=== PATIENT | female | born 1955 | race Caucasian/White ===

== ENCOUNTER → 2019-01-13 07:13 | Outpatient (CLI) | payer MEDICARE, OTHER, SELFPAY ==
[2019-01-13 08:15] LABS: Add Manual Diff / Slide Review NO; Basophils Absolute Auto 100 /uL (0-100); Basophils Percent Auto 0.8 % (0-2); Eosinophils Absolute Auto 200 /uL (0-450); Eosinophils Percent Auto 3.2 % (2-4); Hematocrit 45.3 % (36-46); Lymphocytes Absolute Auto 2800 /uL (1100-4500); Lymphocytes Percent Auto 40.8 % (25-40); Mean Corpuscular HGB Conc 33.2 % (30-36); Mean Corpuscular Volume 84.4 fL (80-100); Monocytes Absolute Auto 700 /uL (0-900); Monocytes Percent Auto 10.9 % (3-14); Neutrophils Absolute Auto 3000 /uL (1500-7000); Neutrophils Percent Auto 44.3 % (50-75); Platelet Count 285 X10^3/uL (150-400); Red Blood Cell Count 5.37 X10^6/uL (4.0-5.2); Red Cell Distribution Width 14.3 % (11.6-14.8); White Blood Cell Count 6.8 X10^3/uL (4.5-11.0)
[2019-01-13 08:34] LABS: Alanine Aminotransferase 33 IU/L (9-52); Albumin 4.3 g/dL (3.5-5.0); Albumin Globulin Ratio 1.2 (1.0-2.8); Alkaline Phosphatase 78 U/L (38-126); Aspartate Aminotransferase 29 IU/L (14-36); BUN Creatinine Ratio 17.1 (6-22); Bilirubin Total 0.3 mg/dL (0.2-1.3); Blood Urea Nitrogen 12 mg/dL (7-17); Calcium 9.8 mg/dL (8.4-10.2); Carbon Dioxide 26 mmol/L (22-32); Chloride 105 mmol/L (98-107); Cholesterol 228 mg/dL (140-199); Estimated Glomerular Filt Rate > 60.0 mL/min (>60); Globulin 3.5 g/dL (1.7-4.1); Glucose 96 mg/dL (80-110); HDL Cholesterol 43 mg/dL (40-60); HEMOLYSIS < 15 (0-50); LDL Cholesterol Calculated 163 mg/dL (<100); Potassium 4.2 mmol/L (3.4-5.1); Sodium 140 mmol/L (137-145); Total Protein 7.8 g/dL (6.3-8.2); Triglycerides 109 mg/dL (35-150)
[2019-01-13 09:02] LABS: TSH w/ Reflex to FT4 3.53 uIU/mL (0.47-4.68)
== END ==
PROVIDERS: Visit Provider Internal Medicine
DX: I10 Essential (primary) hypertension (principal); Z00.00 Encounter for general adult medical examination without abnormal findings; Z13.1 Encounter for screening for diabetes mellitus; Z13.6 Encounter for screening for cardiovascular disorders
CPT/HCPCS: 36415; 80053; 80061; 84443; 85025

== ENCOUNTER → 2019-10-04 11:18 | Outpatient (CLI) | payer MEDICARE, OTHER, SELFPAY ==
--- NOTE | 2019-10-04 11:22 | DI.RAD.S_ITS ---
PROCEDURE: XR SHOULDER RT MIN 2V INDICATIONS: shoulder pain TECHNIQUE: 3 views of the shoulder were acquired. COMPARISON: None. FINDINGS: Bones: No fractures or dislocations. No suspicious bony lesions. Droimymm-ei-apvvnz glenohumeral and mild acromioclavicular joint degeneration. Question Hill-Sachs deformity of humeral head. Visualized ribs appear intact. Soft tissues: Calcification over the humeral head suspicious for calcific tendinitis of the rotator cuff tendons. IMPRESSION: 1. Ilzchzpt-uk-rfxihd degenerative joint disease. 2. Possible Hill-Sachs deformity of humeral head. Please correlate with history of shoulder dislocation. 3. Suspect rotator cuff calcific tendinitis. Dictated by: Maximus Santacruz M.D. on 10/04/2019 at 12:37 Approved by: Maximus Santacruz M.D. on 10/04/2019 at 12:40
== END ==
PROVIDERS: PCP Internal Medicine; Visit Provider Internal Medicine
DX: M25.511 Pain in right shoulder (principal); M19.011 Primary osteoarthritis, right shoulder
CPT/HCPCS: 73030

== ENCOUNTER → 2021-01-11 14:42 | Outpatient (CLI) | payer OTHER, SELFPAY ==
--- NOTE | 2021-01-11 14:47 | DI.MG.S_ITS ---
BILATERAL DIGITAL SCREENING MAMMOGRAM 3D/2D WITH CAD: 01/11/2021 CLINICAL: Routine screening. Comparison is made to exams dated: 01/30/2018 mammogram, 09/26/2015 mammogram, and 04/29/2007 mammogram - [facility]. There are scattered fibroglandular elements in both breasts. Current study was also evaluated with a Computer Aided Detection (CAD) system. There is a benign area of fat necrosis in the left breast. There also are benign calcifications in both breasts. Additionally, there are benign post operative findings in both breasts. No significant masses, calcifications, or other findings are seen in either breast. There has been no significant interval change. IMPRESSION: BENIGN There is no mammographic evidence of malignancy. A 1 year screening mammogram is recommended. This exam was interpreted at Station ID: [id number]. NOTE: For mammograms, a report in lay terms will be sent to the patient. Approximately 15% of breast malignancies will not be visualized mammographically. In the management of a palpable breast mass, a negative mammogram must not discourage biopsy of a clinically suspicious lesion. Electronically Signed By: Carlos Alberto ferrari/caden:01/11/2021 15:49:42 letter sent: Normal Exam ACR BI-RADS Category 2: Benign Finding(s) 3342F
--- NOTE | 2021-01-11 14:47 | DI.RAD.S_ITS ---
PROCEDURE: XR DEXA AXIAL SKELETON INDICATIONS: ROUTINE SCREENING MAMMOGRAM,POST MENOPAUSAL COMPARISON: None. FINDINGS: This blank DEXA report has been sent in error by the PACS system. The correct and complete report will be forthcoming in 1-2 days. Thank you for your patience and understanding. Dictated by: Magui Houser MD, PhD on 01/11/2021 at 16:24 Approved by: Magui Houser MD, PhD on 01/11/2021 at 16:24
== END ==
PROVIDERS: PCP Family Medicine; Referring Provider Family Medicine; Visit Provider Family Medicine
DX: Z12.31 Encounter for screening mammogram for malignant neoplasm of breast (principal); M85.851 Other specified disorders of bone density and structure, right thigh; Z78.0 Asymptomatic menopausal state; Z82.62 Family history of osteoporosis; Z87.891 Personal history of nicotine dependence
CPT/HCPCS: 77063; 77067; 77080

== ENCOUNTER → 2023-01-08 09:43 | Outpatient (CLI) | payer OTHER, SELFPAY ==
--- NOTE | 2023-01-08 09:44 | DI.MG.S_ITS ---
BILATERAL DIGITAL SCREENING MAMMOGRAM 3D/2D WITH CAD: 01/08/2023 CLINICAL: Routine screening. Comparison is made to exams dated: 01/11/2021 mammogram, 01/30/2018 mammogram, and 09/26/2015 mammogram - [facility]. There are scattered areas of fibroglandular density in both breasts (category b / 25%-50% glandular tissue). Current study was also evaluated with a Computer Aided Detection (CAD) system. There is a benign area of fat necrosis in the left breast. There also are benign calcifications in both breasts. Additionally, there are benign post operative findings in both breasts. No significant masses, calcifications, or other findings are seen in either breast. There has been no significant interval change. IMPRESSION: BENIGN There is no mammographic evidence of malignancy. A 1 year screening mammogram is recommended. Based on the Tyrer Cuzick model (a risk assessment model) the patient's lifetime risk is 4.0% and her 10 year risk is 2.4%. According to the ACR, ACS, and NCCN guidelines, an annual breast MRI exam along with mammogram is recommended if the patient's lifetime risk is 20% or greater. This exam was interpreted at Station ID: [id number]. NOTE: For mammograms, a report in lay terms will be sent to the patient. Approximately 15% of breast malignancies will not be visualized mammographically. In the management of a palpable breast mass, a negative mammogram must not discourage biopsy of a clinically suspicious lesion. Electronically Signed By: Pratik gomez/caden:01/08/2023 10:17:21 letter sent: Normal Exam ACR BI-RADS Category 2: Benign Finding(s) 3342F
== END ==
PROVIDERS: PCP Family Medicine; Referring Provider Family Medicine; Visit Provider Family Medicine
DX: Z12.31 Encounter for screening mammogram for malignant neoplasm of breast (principal)
CPT/HCPCS: 77063; 77067

== ENCOUNTER → 2023-08-03 15:25 | Outpatient (CLI) | payer OTHER, SELFPAY ==
--- NOTE | 2023-08-03 15:27 | DI.RAD.S_ITS ---
PROCEDURE: XR KNEE RT 4V INDICATIONS: CHRONIC BILATERAL KNEE PAIN TECHNIQUE: 4 views of the knee were acquired. COMPARISON: None. FINDINGS: Bones: No fractures or dislocations. No suspicious bony lesions. Mild tricompartmental periarticular osteophyte formation. Soft tissues: No joint effusion. No suspicious soft tissue calcifications. IMPRESSION: Osteoarthritis. No acute fracture. No osseous lesion. If symptoms and/or clinical suspicion for pathology persist, further assessment with repeat, or advanced imaging (e.g., CT, MRI, or bone scan) may be helpful for further assessment. Dictated by: Karen Mendieta M.D. on 08/03/2023 at 16:35 Approved by: Karen Mendieta M.D. on 08/03/2023 at 16:35
--- NOTE | 2023-08-03 15:27 | DI.RAD.S_ITS ---
PROCEDURE: XR KNEE LT 4V INDICATIONS: CHRONIC BILATERAL KNEE PAIN TECHNIQUE: 4 views of the knee were acquired. COMPARISON: None. FINDINGS: Bones: No fractures or dislocations. No suspicious bony lesions. Mild tricompartmental periarticular osteophyte formation Soft tissues: No joint effusion. No suspicious soft tissue calcifications. IMPRESSION: Osteoarthritis. No acute fracture. No osseous lesion. If symptoms and/or clinical suspicion for pathology persist, further assessment with repeat, or advanced imaging (e.g., CT, MRI, or bone scan) may be helpful for further assessment. Dictated by: Karen Mendieta M.D. on 08/03/2023 at 16:31 Approved by: Karen Mendieta M.D. on 08/03/2023 at 16:35
== END ==
PROVIDERS: PCP Family Medicine; Referring Provider Family Medicine; Visit Provider Family Medicine
DX: M25.561 Pain in right knee (principal); M25.562 Pain in left knee; G89.29 Other chronic pain; M17.0 Bilateral primary osteoarthritis of knee
CPT/HCPCS: 73564

== ENCOUNTER → 2024-02-22 09:34 | Outpatient (CLI) | payer OTHER, SELFPAY ==
--- NOTE | 2024-02-22 09:36 | DI.RAD.S_ITS ---
PROCEDURE: XR SHOULDER LT MIN 2V INDICATIONS: SHOULDER PAIN TECHNIQUE: 3 views of the shoulder were acquired. COMPARISON: [facility], CR, XR SHOULDER RT MIN 2V, 10/04/2019, 11:18. FINDINGS: Bones: No fractures or dislocations. No suspicious bony lesions. Visualized ribs appear intact. Glenohumeral and acromioclavicular joint space narrowing with associated osteophytosis. Soft tissues: No suspicious soft tissue calcifications. IMPRESSION: Moderate shoulder osteoarthritis. Dictated by: Raman Chapman M.D. on 02/22/2024 at 11:51 Approved by: Raman Chapman M.D. on 02/22/2024 at 11:52
== END ==
PROVIDERS: PCP Family Medicine; Referring Provider Family Medicine; Visit Provider Family Medicine
DX: M19.012 Primary osteoarthritis, left shoulder (principal); M25.512 Pain in left shoulder; G89.29 Other chronic pain
CPT/HCPCS: 73030

== ENCOUNTER 2024-03-09 14:13 | Outpatient (RCR) | payer OTHER, SELFPAY ==
--- NOTE | 2024-03-09 18:16 | PT.OIE ---
Current Diagnoses Pain in left shoulder (03/09/24) Past Medical History (Last Reviewed 02/10/19 @ 10:46 by Speedy Barcenas MD) Essential hypertension Past Surgical History (Last Reviewed 02/10/19 @ 10:46 by Speedy Barcenas MD) Status post breast reduction (11/02/01) Visit Care Team Role Provider Type Yury Daugherty MD Attending Provider Physician Family Provider Primary Care Provider Referring Provider Specialty: [facility] Address: [address] [place] [address], [facility] [place], [facility] Email: [email or web address] Initial Evaluation PT-OP-A Visit Information Start: 03/08/24 17:42 Freq: Status: Active Protocol: Document 03/09/24 14:30 [facility] (Rec: 03/09/24 15:21 [facility] [id number]) Out-Patient Physical Therapy Visit Information Visit Information Visit Type Initial Evaluation Visit Note 10/28 Student PT Shayan Alejo participated in treatment session w/PT direct supervision and direction Visit Start Time 14:31 Visit Number 1 Number of PHYSICAL EDUCATION AIDE Visits 0 PT-OP-B Current Condition Start: 03/08/24 17:42 Freq: Status: Active Protocol: Document 03/09/24 14:30 [facility] (Rec: 03/09/24 15:21 [facility] [id number]) Current Condition History of Current Condition Onset Date 10 years w/recent worsening in last Current Complaints L shoulder pain History of Current Condition Pt has had shoulder pain for 10 years and it has gotten worse. She was told it was frozen shoulder. R shoulder pain w/arthritis and had good success w/cortizone shots. She still does work around the house, but doing yard work like raking, hoeing etc, she can't do it. She couldn't get up off a stool as she feels like she doesn't have any strength in arms. Getting in truck is hard d/t feeling weak in arms. Pt side and back sleeper and does have pain. She takes meloxicam daily and takes arthritis meds at night. She can have pain at night but those help. denies doing PT for shoulders in past. Pt reports neck and jaw pain. Pain is more on L side of shoulder and neck. R handed Prior Treatments and Tests xray IMPRESSION: Moderate shoulder osteoarthritis. Treatment Goals Patient/Caregiver Goals more motion to be able reach up and back, improve strength, be able to do yardwork PT-OP-C Subjective Start: 03/08/24 17:42 Freq: Status: Active Protocol: Document 03/09/24 14:30 [facility] (Rec: 03/09/24 15:21 [facility] [id number]) OP-PT Pain Assessment Location L shoulder Pain Location Details lat shoulder/brachium Description Aching,With Movement Description- Other catches Frequency Intermittent Other Pain Aggravating Factors lay on it, yardwork, doing hair,driving lawnmower/truck Pain Alleviating Factors Medication Other Pain Alleviating Factors CBD cream, PT-OP-F Manual Assessment Start: 03/08/24 17:42 Freq: Status: Active Protocol: Document 03/09/24 14:30 [facility] (Rec: 03/09/24 15:21 [facility] [id number]) Manual Assessments Joint Mobility Assessment Joint Mobility Assessment hard end feel range of motion, pops noted w/use of UEs PT-OP-J Posture/Palpation/Skin Start: 03/08/24 17:42 Freq: Status: Active Protocol: Document 03/09/24 14:30 [facility] (Rec: 03/09/24 15:21 [facility] [id number]) Posture Evaluation Renée Postural Classification System Renée Postural Classifications Posterior/Anterior Comments Posture Comments rot left, B scap abd, B humerus ant in glenoid, fwd head, inc kyphosis PT-OP-K Range of Motion Start: 03/08/24 17:42 Freq: Status: Active Protocol: Document 03/09/24 14:30 [facility] (Rec: 03/09/24 15:21 [facility] [id number]) Shoulder Goniometric Range of Motion Shoulder Left Passive Flexion 110 Abduction 78 External Rotation at 0 degrees Abduction 18 Internal Rotation 25 Comments at 45 deg scaption; pain Left Active Flexion 93 Extension 30 Abduction 70 External Rotation at 0 degrees Abduction 16 Internal Rotation Behind Back (text) lat buttocks Comments pt compensates w/trunk lean and w/excessive scap elevation w/overhead motions; w/ER abd arm from body Right Active Flexion 135 Extension 58 Abduction 155 External Rotation at 0 degrees Abduction 35 Internal Rotation Behind Back (text) T12 Comments when abd goes towards scaption plane PT-OP-L Special Tests Start: 03/08/24 17:42 Freq: Status: Active Protocol: Document 03/09/24 14:30 [facility] (Rec: 03/09/24 15:21 [facility] [id number]) Special Tests Shoulder Special Tests Empty Can Test Results positive Drop Arm Rotator Cuff Test Results neg L Boyer Manny Impingement Test Results positive L PT-OP-Q Treatments Start: 03/08/24 17:42 Freq: Status: Active Protocol: Document 03/09/24 14:30 [facility] (Rec: 03/09/24 15:21 [facility] [id number]) Therapeutic Exercises Supine Exercises AAROm Supine Exercise Name 1. flex 2. ER Side left Equipment Used dowel Reps/Minutes 8 ea Sitting Exercises rotation Sitting Exercise Name ER AROM-w/self help then turn body fwd Side left Reps/Minutes 3 min total table slides Sitting Exercise Name 1. flex 2. scaption 3. abd Side left Reps/Minutes 3 ea Standing Exercises AAROm Standing Exercise Name abd Side left Equipment Used dowel Reps/Minutes 6 Self-Care/Home Management Treatment Education Other Education 8 min: edu re: likely frozen shoulder as doctor said. Edu what is frozen shoulder is and progression timeline can be different based on different people. edu on importance of stretching; edu on how her shoulder mechanics -elevation of entire scap area d/t tightnesss of shoulder is likely causing neck pain. PT-OP-T Assessment and Plan Start: 03/08/24 17:42 Freq: Status: Active Protocol: Document 03/09/24 14:30 [facility] (Rec: 03/09/24 15:21 [facility] [id number]) Physical Therapy Assessment Rehab Potential Rehabilitation Potential Good Evaluation Complexity Number of Personal Factors/Comorbidities 3 or More Number of Body Systems Impaired 4 or More Clinical Presentation at Evaluation Evolving Impairments Impairments Activity Tolerance,Functional Activities,Functional Mobility ,Pain,Posture,ROM,Soft Tissue Mobility,Strength Goals quick dash Impairment 45.45 Short Term Goal (STG) Pt will score no greater than 30 to show improved functional ability STG Duration 04/18 Pig Conveyor Operator Goal (LTG) Pt will score no greater than 10 to show improved functional ability LTG Duration 06/01 ROM Short Term Goal (STG) Pt will be able to improve AROM flex to 100 w/proper scapular humeral movement patterns STG Duration 04/09 Pig Conveyor Operator Goal (LTG) Pt will be able to flex and abd shoulder AROM to 120 deg w /appropriate movement pattern to allow greater ease w/ overhead activities LTG Duration 06/01 ADL Short Term Goal (STG) Pt will be able to wash and do hair w/both hands w/o inc pain STG Duration 05/02 Pig Conveyor Operator Goal (LTG) Pt will be able to return to yard work like raking and other yard work w/o inc pain greater than 2/10 LTG Duration 06/01 Assessment Summary Assessment Pt presents w/chronic hx of L shoulder pain w/worsening in last year w/significant dec in ROM. Pt has very limited PROM and AROM w/hard end feels consistent w/adhesive capsulitis. She has impingmeent symptoms likely d/ t more glenohumeral mechanics d/t restricted jt mobility along w/neck pain d/t excessive use of cervical mm w /LUE usage. She would beneift from skilled PT to address her mobility deficits and dec strength in order to improved her functional ability. Physical Therapy Plan Frequency and Duration Frequency of Treatment 1-2x/week Duration of treatment (weeks) 12 Plan of Care Start Date 03/09/24 Plan of Care End Date 06/01/24 Therapeutic Interventions Therapeutic Interventions Home Exercise Program,Joint Mobilizations,Manual Therapy, Neuromuscular Re-education, Orthotic/Prosthetic Management ,Self-Care/Home Management, Soft Tissue Mobilization, Taping,Therapeutic Activities, Therapeutic Exercises Modalities Cold Pack/Ice Massage,Electric Stimulation,Hot Packs, Infrared Therapy,Iontophoresis ,Ultrasound Next Visit Focus/Plan Next Note Type Treatment Note Next Visit Plan manual therapy to RC mm, teres /lat junction,jt mobilizations review HEP and progress as able, pulleys, walk aways
--- NOTE | 2024-03-09 18:16 | PT.OPPOC ---
Physical, Occupational & Speech Therapy At [facility] Current Diagnoses Pain in left shoulder (03/09/24) Visit Care Team Role Provider Type Yury Daugherty MD Attending Provider Physician Family Provider Primary Care Provider Referring Provider Specialty: Family Practice Address: [address] [place] [address], [facility] [place], [address] Email: [email or web address] Plan Of Care PT-OP-T Assessment and Plan Start: 03/08/24 17:42 Freq: Status: Active Protocol: Document 03/09/24 14:30 [facility] (Rec: 03/09/24 15:21 [facility] [id number]) Physical Therapy Assessment Rehab Potential Rehabilitation Potential Good Evaluation Complexity Number of Personal Factors/Comorbidities 3 or More Number of Body Systems Impaired 4 or More Clinical Presentation at Evaluation Evolving Impairments Impairments Activity Tolerance,Functional Activities,Functional Mobility ,Pain,Posture,ROM,Soft Tissue Mobility,Strength Goals quick dash Impairment 45.45 Short Term Goal (STG) Pt will score no greater than 30 to show improved functional ability STG Duration 04/18 Regulator Tester Goal (LTG) Pt will score no greater than 10 to show improved functional ability LTG Duration 06/01 ROM Short Term Goal (STG) Pt will be able to improve AROM flex to 100 w/proper scapular humeral movement patterns STG Duration 04/09 Regulator Tester Goal (LTG) Pt will be able to flex and abd shoulder AROM to 120 deg w /appropriate movement pattern to allow greater ease w/ overhead activities LTG Duration 06/01 ADL Short Term Goal (STG) Pt will be able to wash and do hair w/both hands w/o inc pain STG Duration 05/02 Regulator Tester Goal (LTG) Pt will be able to return to yard work like raking and other yard work w/o inc pain greater than 2/10 LTG Duration 06/01 Assessment Summary Assessment Pt presents w/chronic hx of L shoulder pain w/worsening in last year w/significant dec in ROM. Pt has very limited PROM and AROM w/hard end feels consistent w/adhesive capsulitis. She has impingmeent symptoms likely d/ t more glenohumeral mechanics d/t restricted jt mobility along w/neck pain d/t excessive use of cervical mm w /LUE usage. She would beneift from skilled PT to address her mobility deficits and dec strength in order to improved her functional ability. Physical Therapy Plan Frequency and Duration Frequency of Treatment 1-2x/week Duration of treatment (weeks) 12 Plan of Care Start Date 03/09/24 Plan of Care End Date 06/01/24 Therapeutic Interventions Therapeutic Interventions Home Exercise Program,Joint Mobilizations,Manual Therapy, Neuromuscular Re-education, Orthotic/Prosthetic Management ,Self-Care/Home Management, Soft Tissue Mobilization, Taping,Therapeutic Activities, Therapeutic Exercises Modalities Cold Pack/Ice Massage,Electric Stimulation,Hot Packs, Infrared Therapy,Iontophoresis ,Ultrasound Next Visit Focus/Plan Next Note Type Treatment Note Next Visit Plan manual therapy to RC mm, teres /lat junction,jt mobilizations review HEP and progress as able, pulleys, walk aways Plan of Care Dates Plan of Care Start Date 03/09/24 Plan of Care End Date 06/01/24 Electronically Signed by: Trena Funez, PT 03/09/24 [id number] If you are in agreement with this Plan of Care, please return a signed and dated copy. I have reviewed this Plan of Care and certify that the skilled therapy services above are required to meet the patient?s needs. Physician Signature Date Printed Name and Credentials Clinical Instructor Signature Printed Name and Credentials
--- NOTE | 2024-03-21 14:16 | PT-OP ANOTE ---
Pt called re: cancelling all visits to just do HEP. VM left re: more can be done in session and gave phone number to call back to let us know if she still wants to have all visits cancelled.
--- NOTE | 2024-05-11 12:15 | PT.OPDS ---
Current Diagnoses Pain in left shoulder (03/09/24) Visit Care Team Role Provider Type Yury Daugherty MD Attending Provider Physician Family Provider Primary Care Provider Referring Provider Specialty: Family Practice Address: [address] [place] [address], [facility], [place], [address] Email: [email or web address] Visit Number Visit Number 1 Discharge Summary PT-OP-B Current Condition Start: 03/08/24 17:42 Freq: Status: Active Protocol: Document 03/09/24 14:30 [facility] (Rec: 03/09/24 15:21 [facility] [id number]) Current Condition History of Current Condition Onset Date 10 years w/recent worsening in last Current Complaints L shoulder pain History of Current Condition Pt has had shoulder pain for 10 years and it has gotten worse. She was told it was frozen shoulder. R shoulder pain w/arthritis and had good success w/cortizone shots. She still does work around the house, but doing yard work like raking, hoeing etc, she can't do it. She couldn't get up off a stool as she feels like she doesn't have any strength in arms. Getting in truck is hard d/t feeling weak in arms. Pt side and back sleeper and does have pain. She takes meloxicam daily and takes arthritis meds at night. She can have pain at night but those help. denies doing PT for shoulders in past. Pt reports neck and jaw pain. Pain is more on L side of shoulder and neck. R handed Prior Treatments and Tests xray IMPRESSION: Moderate shoulder osteoarthritis. Treatment Goals Patient/Caregiver Goals more motion to be able reach up and back, improve strength, be able to do yardwork PT-OP-C Subjective Start: 03/08/24 17:42 Freq: Status: Active Protocol: Document 03/09/24 14:30 [facility] (Rec: 03/09/24 15:21 [facility] [id number]) OP-PT Pain Assessment Location L shoulder Pain Location Details lat shoulder/brachium Description Aching,With Movement Description- Other catches Frequency Intermittent Other Pain Aggravating Factors lay on it, yardwork, doing hair,driving lawnmower/truck Pain Alleviating Factors Medication Other Pain Alleviating Factors CBD cream, PT-OP-F Manual Assessment Start: 03/08/24 17:42 Freq: Status: Active Protocol: Document 03/09/24 14:30 [facility] (Rec: 03/09/24 15:21 [facility] [id number]) Manual Assessments Joint Mobility Assessment Joint Mobility Assessment hard end feel range of motion, pops noted w/use of UEs PT-OP-J Posture/Palpation/Skin Start: 03/08/24 17:42 Freq: Status: Active Protocol: Document 03/09/24 14:30 [facility] (Rec: 03/09/24 15:21 [facility] [id number]) Posture Evaluation Renée Postural Classification System Renée Postural Classifications Posterior/Anterior Comments Posture Comments rot left, B scap abd, B humerus ant in glenoid, fwd head, inc kyphosis PT-OP-K Range of Motion Start: 03/08/24 17:42 Freq: Status: Active Protocol: Document 03/09/24 14:30 [facility] (Rec: 03/09/24 15:21 [facility] [id number]) Shoulder Goniometric Range of Motion Shoulder Left Passive Flexion 110 Abduction 78 External Rotation at 0 degrees Abduction 18 Internal Rotation 25 Comments at 45 deg scaption; pain Left Active Flexion 93 Extension 30 Abduction 70 External Rotation at 0 degrees Abduction 16 Internal Rotation Behind Back (text) lat buttocks Comments pt compensates w/trunk lean and w/excessive scap elevation w/overhead motions; w/ER abd arm from body Right Active Flexion 135 Extension 58 Abduction 155 External Rotation at 0 degrees Abduction 35 Internal Rotation Behind Back (text) T12 Comments when abd goes towards scaption plane PT-OP-L Special Tests Start: 03/08/24 17:42 Freq: Status: Active Protocol: Document 03/09/24 14:30 [facility] (Rec: 03/09/24 15:21 [facility] [id number]) Special Tests Shoulder Special Tests Empty Can Test Results positive Drop Arm Rotator Cuff Test Results neg L Boyer Manny Impingement Test Results positive L PT-OP-T Assessment and Plan Start: 03/08/24 17:42 Freq: Status: Active Protocol: Document 04/27/24 15:49 [facility] (Rec: 04/27/24 15:51 [facility] [id number]) Physical Therapy Assessment Goals quick dash Impairment 45.45 Short Term Goal (STG) Pt will score no greater than 30 to show improved functional ability STG Duration 04/18 Furnace Combustion Analyst Goal (LTG) Pt will score no greater than 10 to show improved functional ability LTG Duration 06/01 ROM Short Term Goal (STG) Pt will be able to improve AROM flex to 100 w/proper scapular humeral movement patterns STG Duration 04/09 Half-Way Goal (LTG) Pt will be able to flex and abd shoulder AROM to 120 deg w /appropriate movement pattern to allow greater ease w/ overhead activities LTG Duration 06/01 ADL Short Term Goal (STG) Pt will be able to wash and do hair w/both hands w/o inc pain STG Duration 05/02 Furnace Combustion Analyst Goal (LTG) Pt will be able to return to yard work like raking and other yard work w/o inc pain greater than 2/10 LTG Duration 06/01 Assessment Summary Assessment Pt seen only for eval then called to cancel remaining appointments, said she will continue exercises at home on own. PT called and left VM to edu re: importance of sessions but pt did not call back to reschedule. DC d/t no longer attending PT per pt request DC Physical Therapy Plan Discharge Physical Therapy Discharge Reasons Patient Request
== END 2024-05-13 08:02 | disposition home or self-care (01) ==
LOC: PHYS 14:13
PROVIDERS: Family Provider Family Medicine; PCP Family Medicine; Referring Provider Family Medicine; Visit Provider Family Medicine
DX: M25.512 Pain in left shoulder (principal)
CPT/HCPCS: 97110; 97162; 97535